=== PATIENT | male | born 1965 | race Caucasian/White ===

== ENCOUNTER 2021-02-04 11:13 | Outpatient (CLI) | payer OTHER ==
[2021-02-04] MEDS ORDERED: DESV100T PO (11:44)
[2021-02-04] MEDS ORDERED: ALLEGRA PO (11:44)
[2021-02-04] MEDS ORDERED: AMPH20TA2 PO (12:06)
== END 2021-02-04 23:59 | disposition home or self-care (01) ==
LOC: STAR 11:13
PROVIDERS: ATTEND Orthopaedic Surgery
DX: Z02.9 Encounter for administrative examinations, unspecified (principal)

== ENCOUNTER 2021-02-11 10:25 | Day surgery (SDC) | payer OTHER ==
[~2021-02-11] VITALS: Ht 180.3 cm; Wt 111.6 kg
[~2021-02-11 10:25] MED LIST: ALLEGRA PO; AMPH20TA2 PO; BUPIVACAINE/PF 0.5% ONE; DESV100T PO; EPINEPHRINE 1 MG/ML, 1ML ONE; LIDOCAINE/PF 1%, 30ML ONE
[2021-02-11] MEDS ORDERED: MIDAZOLAM 1 MG/ML, 2ML ONE (10:55)
[2021-02-11] MEDS ORDERED: FENTANYL PF 250 MCG/5ML ONE (10:56)
[2021-02-11] MEDS ORDERED: CHLORHEXIDINE 15 ML UDC PO ONE (11:00)
[2021-02-11] MEDS ORDERED: LACTATED RINGERS 1,000 ML IV SCH (11:00)
[2021-02-11] MEDS ORDERED: LIDOCAINE-MPF 1%, 2ML INFIL ONE (11:00)
[2021-02-11] MEDS ORDERED: METO25TA35 PO (11:10)
[2021-02-11] MEDS ORDERED: MEPERIDINE/PF 25MG/0.5ML IVPush PRN (11:30)
[2021-02-11] MEDS ORDERED: OXYcodone 5 MG/5 ML ORAL.SOL UDC PO PRN (11:30)
[2021-02-11] MEDS ORDERED: HALOPERIDOL 5 MG/ML IV PRN (11:30)
[2021-02-11] MEDS ORDERED: hydrALAzine 20 MG/ML, 1ML IV PRN (11:30)
[2021-02-11] MEDS ORDERED: ACETAMINOPHEN 325 MG TABLET PO PRN (11:30)
[2021-02-11] MEDS ORDERED: DIPHENHYDRAMINE 50 MG/ML, 1ML IVPush PRN (11:30)
[2021-02-11] MEDS ORDERED: HYDROmorphone 1 MG/ML, 1ML INJ IVPush PRN (11:30)
[2021-02-11] MEDS ORDERED: LABETALOL 5MG/ML, 20ML IV PRN (11:30)
[2021-02-11] MEDS ORDERED: FENTANYL PF 100 MCG/2ML IV PRN (11:30)
[2021-02-11] MEDS ORDERED: PROMETHAZINE 25 MG/ML, 1ML IVPush PRN (11:30)
[2021-02-11] MEDS ORDERED: GLYCOPYRROLATE 0.2MG/1ML, 5ML ONE (13:18)
[2021-02-11] MEDS ORDERED: ROCURONIUM 10MG/ML,5ML ONE (13:18)
[2021-02-11] MEDS ORDERED: ROPIvacaine/PF 0.5%, 30 ML ONE (13:18)
[2021-02-11] MEDS ORDERED: CEFAZOLIN 1,000 MG ONE (13:18)
[2021-02-11] MEDS ORDERED: ONDANSETRON 2MG/ML, 2ML ONE (13:18)
[2021-02-11] MEDS ORDERED: NEOSTIGMINE 1 MG/ML, 10ML ONE (13:18)
[2021-02-11] MEDS ORDERED: SUCCINYLCHOLINE 20 MG/ML, 10ML ONE (13:18)
[2021-02-11] MEDS ORDERED: DEXAMETHASONE 4 MG/ML, 1ML ONE (13:18)
[2021-02-11] MEDS ORDERED: EPINEPHRINE 1 MG/ML, 1ML ONE (13:18)
[2021-02-11] MEDS ORDERED: PROPOFOL 10 MG/ML, 20ML ONE (13:18)
[2021-02-11] MEDS ORDERED: ACETAMINOPHEN 650 MG/20.3 ML UDC ONE (14:08)
[2021-02-11] MEDS ORDERED: METOPROLOL TARTRATE 25 MG TAB PO SCH (21:00)
== END 2021-02-11 14:45 | disposition home or self-care (01) ==
LOC: OUT 10:25
PROVIDERS: ATTEND Orthopaedic Surgery
DX: S83.232A Complex tear of medial meniscus, current injury, left knee, initial encounter (principal); M22.42 Chondromalacia patellae, left knee; M67.52 Plica syndrome, left knee; I10 Essential (primary) hypertension; F41.9 Anxiety disorder, unspecified; F32.9 Major depressive disorder, single episode, unspecified; F90.9 Attention-deficit hyperactivity disorder, unspecified type; X50.1XXA Overexertion from prolonged static or awkward postures, initial encounter; Y93.01 Activity, walking, marching and hiking; Y92.89 Other specified places as the place of occurrence of the external cause; Y99.8 Other external cause status
CPT/HCPCS: 29881; 64447; J0171; J0330; J0690; J1100; J2250; J2405; J2704; J2795; J3010; J7120; J2710